=== PATIENT | female | born 1985 | race Caucasian/White ===

== ENCOUNTER 2022-04-06 21:31 | Emergency (ER) | payer OTHER ==
[~2022-04-06] VITALS: Ht 157.5 cm; Wt 76.2 kg
[2022-04-06 22:08] VITALS: BP_SYST 151
--- NOTE | 2022-04-06 22:10 | NUR ---
RECEIEVD PT C/O LACERATION TO HEAD. PT STATED THAT A GLASS SODA BOTTLE FELL AND EXPLODE AND HIT HER HEAD AND SUSTAIN LACERATION. PT DENIES KO, DENIES PAST MEDICAL HISTORY. BLEEDING CONTROLLED AT THIS TIME.
--- NOTE | 2022-04-06 22:45 | NUR ---
ASSISTD PT TO ROOM 2, AMBULATE WITH STAEDY GAIT, DENIES DIZZINESS
--- NOTE | 2022-04-06 23:17 | NUR ---
ABAD Melton at bedside examining patient.
[2022-04-06] MEDS ORDERED: LIDOCAINE 1% 10 MG/ML, 20 ML MDV INJ ONE (23:30)
[2022-04-06] MEDS ORDERED: DIPH-TET-PERTUS Vaccine 0.5 ML VIAL (ADACEL) I.M. ONE (23:45)
[2022-04-07] MEDS ORDERED: LIDOCAINE 1%, 20 ML MDV 0 ML ONE (00:46)
--- NOTE | 2022-04-07 02:00 | NUR ---
DR. BENSON AT BEDSIDE FIXING LACERATION.
--- NOTE | 2022-04-07 02:05 | NUR ---
Patient given written and verbal discharge instructions and verbalizes understanding. ER MD discussed with patient the results and treatment provided. Patient in stable condition. ID arm band removed. IV catheter removed intact and dressing applied, no active bleeding. Rx of N/A given. Patient educated on pain management and to follow up with PMD. Pain Scale . Opportunity for questions provided and answered. Medication side effect fact sheet provided.
== END 2022-04-07 02:05 | disposition home or self-care (01) ==
LOC: SED 21:31
DX: S01.01XA Laceration without foreign body of scalp, initial encounter (principal); Z79.899 Other long term (current) drug therapy; W25.XXXA Contact with sharp glass, initial encounter; Y93.89 Activity, other specified; Y92.89 Other specified places as the place of occurrence of the external cause; Y99.8 Other external cause status
CPT/HCPCS: 99282; 12001; J2001